=== PATIENT | female | born 2005 | race Two or more races ===

== ENCOUNTER 2025-03-18 20:08 | Emergency (ER) | payer OTHER ==
[~2025-03-18] VITALS: Ht 170.2 cm; Wt 73.5 kg
[2025-03-18] MEDS ORDERED: CEFTRIAXONE SODIUM 1,000 MG VIAL IV ONE (21:00)
[2025-03-18] MEDS ORDERED: LIDOCAINE HCL 1% 10ML VIAL ONE (21:00)
[2025-03-18] MEDS ORDERED: CEFTRIAXONE SODIUM 1,000 MG VIAL ONE (21:00)
== END 2025-03-18 21:09 | disposition home or self-care (01) ==
LOC: ER 20:09
DX: T18.0XXA Foreign body in mouth, initial encounter (principal); Y92.89 Other specified places as the place of occurrence of the external cause